=== PATIENT | male | born 1980 | race Caucasian/White ===

== ENCOUNTER → 2023-11-26 | Outpatient (CLI) | payer OTHER ==
[2023-11-26 17:11] LABS: ALT 16 U/L (10-49); AST 15 U/L (14-35); Albumin 4.2 g/dL (3.8-4.9); Albumin/Globulin Ratio 1.68 Ratio (1.60-3.17); Alkaline Phosphatase 106 U/L (41-126); BUN/Creat Ratio 12.33 Ratio (12.00-20.00); Blood Urea Nitrogen 11.1 mg/dL (9.0-27.0); Calcium 9.8 mg/dL (8.7-10.3); Carbon Dioxide 25.3 mmol/L (21.6-31.8); Chloride 105 mmol/L (96-109); Globulin 2.5 g/dL (1.6-3.3); Glucose 141 mg/dL (70-110); Potassium 4.3 mmol/L (3.5-5.5); Sodium 141 mmol/L (135-145); Total Bilirubin 0.6 mg/dL (0.3-1.2); Total Protein 6.7 g/dL (6.2-8.2)
[2023-11-26 17:38] LABS: Basophils # (A) 0.04 X 10*3/uL (0.00-0.10); Basophils % (A) 0.4 %; Eosinophils % (A) 6.3 %; HCT 47.2 % (39.6-50.0); HGB 15.6 g/dL (13.0-17.0); Lymphocytes # (A) 2.16 X 10*3/uL (0.90-5.00); Lymphocytes % (A) 22.6 %; MCH 33.1 pg (27.0-32.0); MCHC 33.1 g/dL (32.0-37.0); MCV 100.2 FL (80.0-97.0); Mean Platelet Volume 9.4 FL (9.5-12.2); Monocytes # (A) 0.92 X 10*3/uL (0.20-1.00); Monocytes % (A) 9.6 %; NRBC Per 100 WBC 0 X 10*3/uL (0.00-0.01); Neutrophils # (A) 5.79 X 10*3/uL (1.80-7.70); Neutrophils % (A) 60.8 %; Platelet Count 269 X 10*3/uL (140-440); RBC 4.71 X 10*6/uL (4.40-5.60); RDW 12.3 % (11.5-14.5); WBC 9.54 X 10*3/uL (4.50-10.00)
[2023-11-27 09:52] LABS: Appearance,Urine Cloudy (Clear); Bacteria,Urine None Seen (None Seen); Bilirubin,Urine Negative (Negative); Blood,Urine Large (Negative); Color,Urine Yellow (Yellow); Ketones,Urine Negative (Negative); Nitrite,Urine Negative (Negative); Specific Gravity,Urine 1.013 (1.001-1.030); Urobilinogen,Urine 0.2 E.U./DL
== END | disposition home or self-care (01) ==
LOC: LABPAT 08:35
PROVIDERS: ATTEND Urology
DX: Z01.812 Encounter for preprocedural laboratory examination (principal); N20.0 Calculus of kidney
CPT/HCPCS: 80053; 81001; 85025; 86850; 86900; 86901; 93005

== ENCOUNTER 2023-11-29 09:19 | Day surgery (SDC) | payer OTHER ==
--- NOTE | 2023-11-28 18:27 | P.GSHP ---
History of Present Illness H&P Date: 11/28/23 43 yo male sent by Dr Lane from [place] for a pcnl RIght to a large[>2cm] right renal pelvic stone that he was unable to break with ureteroscopy and laser lithotripsy. The alternatives were discussed with the patient. The risks, complications of a pcnl including infection, bleeding, pain. injury to adjacent organs, incomplete stone removal, failure to intubate the idney among others have been explained understood and accepted by the patient. He comes for a right pcnl - Constitutional Constitutional: Denies chills, Denies fever - EENT Eyes: denies blurred vision, denies pain Ears, nose, mouth and throat: Denies headache, Denies sore throat - Cardiovascular Cardiovascular: Denies chest pain, Denies shortness of breath - Respiratory Respiratory: Denies cough, Denies 7 - Gastrointestinal Gastrointestinal: Denies abdominal pain, Denies diarrhea, Denies nausea, Denies vomiting - Genitourinary (Female) Genitourinary: Denies dysuria, Denies hematuria - Genitourinary (Male) Genitourinary: Denies dysuria, Denies hematuria - Musculoskeletal Musculoskeletal: Denies myalgias - Integumentary Integumentary: Denies pruritus, Denies rash - Neurological Neurological: Denies numbness, Denies weakness - Psychiatric Psychiatric: Denies anxiety, Denies depression - Endocrine Endocrine: Denies fatigue, Denies weight change Past Medical History Past Medical History: Asthma, Diabetes Mellitus, GERD/Reflux, Hyperlipidemia, Hypertension, Liver Disease, Osteoarthritis (OA) Additional Past Medical History / Comment(s): Heart racing/procedure to stop racing-done at [facility] in [place] about 5-6 yrs ago, RT KIDNEY STONE, allergies, past fatty liver. History of Any Multi-Drug Resistant Organisms: None Reported Past Surgical History: Cholecystectomy Additional Past Surgical History / Comment(s): Percutaneous heart procedure where "they took a tube out of my heart because I was pumping too much blood", EGD 09/10 Past Anesthesia/Blood Transfusion Reactions: No Reported Reaction Additional Past Anesthesia/Blood Transfusion Reaction / Comment(s): HAS NEVER HAD ANESTHESIA. Smoking Status: Current every day smoker, Vaper - Past Family History Mother History Unknown: Yes Family Medical History: No Reported History Medications and Allergies Home Medications Medication Instructions Recorded Confirmed Type Acetaminophen Tab [Tylenol] 1 tab PO Q4-6H PRN 08/06/15 11/23/23 History Albuterol Inhaler [Ventolin 1 puff INHALATION DAILY PRN 08/06/15 11/23/23 History Inhaler] Dicyclomine [Bentyl] 10 mg PO BID 08/06/15 11/23/23 History Mometasone/Formoterol [Dulera 100 1 puff INHALATION BID 08/06/15 11/23/23 History Mcg/5 Mcg Inhaler] Montelukast [Singulair] 10 mg PO HS 08/06/15 11/23/23 History Atorvastatin [Lipitor] 10 mg PO QAM 11/23/23 11/23/23 History Famotidine 20 mg PO BID 11/23/23 11/23/23 History Ibuprofen [Advil] 200 mg PO Q12H PRN 11/23/23 11/23/23 History Pioglitazone [Actos] 15 mg PO QAM 11/23/23 11/23/23 History Tirzepatide [Mounjaro] 5 mg SQ TU 11/23/23 11/23/23 History lisinopriL [Zestril] 20 mg PO QAM 11/23/23 11/23/23 History metFORMIN HCL 1,000 mg PO QAM 11/23/23 11/23/23 History Allergies Allergy/AdvReac Type Severity Reaction Status Date / Time dog dander Allergy Rash/Hives Verified 11/23/23 12:21 Latex, Natural Rubber Allergy Rash/Hives Verified 11/23/23 11:53 hay, straw, grass Allergy Rash/Hives Uncoded 11/23/23 12:21 Surgical - Exam - General well developed, well nourished, no distress - Eyes normal ocular movement, no icteric - ENT no hearing loss, no congestion - Neck no masses, trachea midline - Respiratory normal respiratory effort, clear to auscultation - Abdomen Abdomen: soft, non tender, no guarding, no rigid, no rebound - Integumentary no rash, no abnormal pigmentation - Neurologic no disoriented, no combative - Psychiatric oriented to time, oriented to person, oriented to place, speech is normal, memory intact Results - Imaging Abdominal x-ray: report reviewed, image reviewed CT scan - abdomen: report reviewed CT scan - pelvis: report reviewed Assessment and Plan Assessment: Impression: Right renal stone, large. Cardiac history Plan: right pcnl
[~2023-11-29 09:19] MED LIST: LIDOCAINE 1% (10MG/ML) FOR IV START INTRADERMA PRN; MIDAZOLAM 2 MG/2 ML VIAL IV PRN
[2023-11-29 10:19] LABS: Glucose,Whole Blood 131 mg/dL (70-110)
[2023-11-29] MEDS: ONDANSETRON 4 MG/2 ML VIAL IVP ONE (10:22)
[2023-11-29] MEDS: DEXAMETHASONE SOD PHOSPHATE 4 MG/ML 1 ML VIAL IV ONE (10:22)
[2023-11-29] MEDS: LACTATED RINGERS 1,000 ML IV SCH (10:22)
--- NOTE | 2023-11-29 11:19 | XR ---
EXAMINATION TYPE: XR KUB DATE OF EXAM: 11/29/2023 9:38 AM CLINICAL INDICATION:Male, 43 years old with history of Right Renal Stone N20.0; [facility] COMPARISON: None. TECHNIQUE: One radiographic view of the abdomen was obtained. FINDINGS: Right ureteral stent with superior and inferior pigtails in appropriate position. Right abhilash al calculus measuring up to 25 mm. Left renal calculus also present measuring 7 mm. The bowel gas pat tern is nonspecific without dilated loops of small or large bowel. There is no evidence for organomeg robert or pneumoperitoneum. The osseous structures are intact. Fecal material and gas are demonstrated throughout the colon and rectum. IMPRESSION: Right renal calculus with right ureteral stent in place.
[2023-11-29] MEDS ORDERED: LIDOCAINE 1% INJ 10MG/ML (20 ML MDV) ONE (13:56)
[2023-11-29] MEDS ORDERED: fentaNYL (PF) 50 MCG/ML 2 ML AMP ONE (13:56)
[2023-11-29] MEDS ORDERED: ROCURONIUM 10 MG/ML (5 ML VIAL) IV ONE (13:56)
[2023-11-29] MEDS ORDERED: ePHEDrine 50 MG/ML 1 ML VIAL ONE (13:56)
[2023-11-29] MEDS ORDERED: PHENYLEPHRINE-0.9% NACL SYG 1,000 MCG/10 ML SYRINGE ONE (13:56)
[2023-11-29] MEDS ORDERED: SUCCINYLCHOLINE CHLORIDE 200 MG/10 ML VIAL IV ONE (13:56)
[2023-11-29] MEDS ORDERED: GLYCOPYRROLATE 0.2 MG/ML 2 ML VIAL ONE (13:56)
[2023-11-29] MEDS ORDERED: HYDROmorphone (PF) 1 MG/ML ONE (13:56)
[2023-11-29] MEDS ORDERED: MIDAZOLAM 2 MG/2 ML VIAL ONE (13:56)
[2023-11-29] MEDS ORDERED: NEOSTIGMINE 1 MG/ML 10 ML VIAL ONE (13:56)
[2023-11-29] MEDS ORDERED: PROPOFOL 10 MG/ML 20 ML VIAL IV ONE (13:56)
[2023-11-29] MEDS: LACTATED RINGERS 1,000 ML IV ONE (14:00)
[2023-11-29] MEDS: IOPAMIDOL-370 100ML BTL MISCELLANE ONE (14:10)
[2023-11-29] MEDS: GENTAMICIN 120 MG in SODIUM CHLORIDE 0.9% 100 ML IVPB PRN (14:22)
[2023-11-29] MEDS: AMPICILLIN 1,000 MG in SODIUM CHLORIDE 0.9% 50 ML IVPB PRN (14:34)
[2023-11-29] MEDS ORDERED: ALBUTEROL NEBULIZED 2.5 MG/3 ML INHALATION PRN (16:26)
[2023-11-29] MEDS ORDERED: ACETAMINOPHEN TAB 325 MG TAB PO PRN ×2 (16:26→16:28)
[2023-11-29] MEDS ORDERED: NALOXONE 0.4 MG/ML 1 ML VIAL IV PRN (16:27)
[2023-11-29] MEDS ORDERED: MAG HYDROX/AL HYDROX/SIMETH 30 ML CUP PO PRN (16:28)
[2023-11-29] MEDS ORDERED: ONDANSETRON 4 MG/2 ML VIAL IVP PRN (16:28)
[2023-11-29] MEDS: HYDROmorphone 0.5 MG/0.5 ML SYRINGE IVP PRN (17:13)
[2023-11-29 17:31] LABS: Glucose,Whole Blood 247 mg/dL (70-110)
[2023-11-29] MEDS: INSULIN ASPART (NovoLOG) 100 UNIT/ML VIAL SQ ONE (17:34)
--- NOTE | 2023-11-29 17:44 | FL ---
EXAMINATION TYPE: FL Perc Nephrostomy New Access Intraoperative/procedural fluoroscopic services were provided. Total fluoroscopy time is 6 min 21 sec with a total of 6 submitted images to PACS. Please see the operative/procedural note for further details. DAP: 124.7 Gycm2
[2023-11-29] MEDS: SODIUM CHLORIDE 0.45% 1,000 ML IV SCH (18:35)
[2023-11-29 20:46] LABS: Glucose,Whole Blood 204 mg/dL (70-110)
[2023-11-29] MEDS: SYMBICORT 80-4.5 MCG INHALER INHALATION SCH (21:18)
[2023-11-29] MEDS: HYDROmorphone PCA 10 MG/50 ML BAG IV PRN (21:33)
[2023-11-29] MEDS: FAMOTIDINE 20 MG TAB PO SCH (22:07)
[2023-11-29] MEDS: MONTELUKAST 10 MG TAB PO SCH (22:07)
[2023-11-29] MEDS: DICYCLOMINE 10 MG CAP PO SCH (22:07)
--- NOTE | 2023-11-29 22:12 | OP ---
OPERATIVE REPORT DATE OF SERVICE : PREOPERATIVE DIAGNOSIS: Kidney stone, right (large greater than 2 cm). POSTOPERATIVE DIAGNOSIS: Kidney stone, right (large greater than 2 cm). PROCEDURES: 1. Cystoscopy. 2. Placement of occluding balloon catheter, right. 3. Percutaneous nephrostomy access (Dr. Mandujano). 4. Percutaneous nephrostolithotomy with ultrasound. 5. Placement of 12-[place] J nephrostomy tube. ANESTHESIA: General. OPERATIVE INDICATIONS: The patient is a middle-aged gentleman with a 2.5 cm right renal pelvic stone, sent to me from a urologist in [place], [place] because of his inability to remove the stone ureteroscopically. He comes for percutaneous nephrostolithotomy. Risks, complications including infection, bleeding, pain, failure to access, damage to the kidney, damage to the surrounding organs, retained stone, among others have been explained, understood and accepted. OPERATIVE PROCEDURE: The patient was brought to the operating suite. He was given a general anesthetic on the transport gurney. Rolls were placed underneath his hips. He was placed in a frog- leg position. Under sterile prep and drape, cystoscopy was performed with a 21-[place]ore[place] sheath. Urethra was normal. The prostate was not obstructing. The double-J catheter on the right was identified. With difficulty, it was grasped and pulled out of the ureter. I then reintroduced the cystoscope and passed a 5-[place] occluding balloon catheter up into the renal pelvis. It was secured to a 16-[place] latex-free Rosales catheter. The patient was then placed in a prone position with care to areas in extremities. Percutaneous access to an upper pole calyx has been performed by myself and will be dictated separately. After percutaneous access, dilated the tract to 30-[place]orese. I introduced the rigid nephroscope into the collecting system. Clot was removed. The large stone was identified. With nephroscope, the stone was broken up into tiny pieces and suctioned out or grasped and removed with grasping forceps. I then introduced a flexible nephroscope throughout the collecting system and removed any other smaller fragments that either came from grinding the stone or that were there previously. At the end of the procedure, there was 1 tiny calcification I can identify that may be a tubular stone. I then elected to terminate the procedure. The working sheath was removed. Over the wire was passed a 12-[place] J nephrostomy tube that was secured to the skin. Access in the lower pole which failed was closed also with 3-0 silk. The patient was awakened and returned to recovery room in good condition. Blood loss was approximately 200 mL. He will be placed in the hospital postoperatively. His condition was good. PRASHANT / KHUSHBOO: [id number] /
--- NOTE | 2023-11-29 22:32 | PCN ---
PROCEDURE NOTE DIAGNOSIS: Large kidney stone, right (greater than 2 cm). PROCEDURE: Percutaneous nephrostomy access. ANESTHESIA: General. Fabio Oreilly is_43 yo male with a large right renal stone[>2cm]. He comes for percutaneous nephrostolithotomy today. I will perform percutaneous access for the percutaneous nephrostolithotomy. The patient has previously been anesthetized. A ureteral occlusion balloon catheter was placed up in the ureter. The patient has been placed in a prone position with sterile prep and draping with care to areas in extremities. I injected air through the occluding balloon catheter to outline the collecting system. The lower pole calyx looks amenable to past the nephrostomy tube. Several attempts and I finally got the Chiba needle, 3-Namibian into the collecting system. Through that, the Anna Mandril wire was passed into the collecting system. I am unable to get it to go by the impacted stone. I attempted to coil the wires in the middle pole calyx. Over that, I then passed an 8 to 10-Namibian reentry sheath. The inner sheath was removed. I passed the 2nd wire into the middle pole calyx. Then, over the wire, I dilated the collecting system and attempted to pass a working sheath into the collecting system, but I am unable to do so. I leave the working sheath there for now. I re-approached the upper pole calyx. Between the 11th and 12th rib, I am able to pass the Chiba needle into the collecting system. This time, I am able to pass the Anna Mandril wire through the Chiba needle into the upper pole calyx. I then passed the 6- [place]ib[place] dilating catheter over the wire. I introduced an 0.035 Glidewire. I then passed the 5-Namibian Kumpe catheter over the wire and directed the wire down the ureter. I then advanced the wire down the ureter. I removed the 0.035 wire and passed an 0.038 superstiff wire down the ureter. I then passed 8 to 10 exchange catheters. I removed the entire catheter and passed a safety wire down the ureter. I removed the working sheath. I then over the working wire, passed a 10 to 30-Namibian dilating balloon and the tract was dilated to 30-Namibian. Over the 30-Namibian balloon, I then passed a working sheath into the collecting system successfully. MMODL / IJN: [id number] / [facility]
[2023-11-29] MEDS: ARTIFICIAL TEARS-HYPROMELLOSE DROPS 15 ML BTL RIGHT EYE PRN (22:41)
[2023-11-30 02:20] VITALS: RESP 18
[2023-11-30 06:07] LABS: Glucose,Whole Blood 139 mg/dL (70-110)
[2023-11-30 07:55] VITALS: BP 106/66; PULSE 84; TEMP 98
[2023-11-30] MEDS: metFORMIN 500 MG TAB PO SCH (08:24)
[2023-11-30] MEDS: lisinopriL 20 MG TAB PO SCH (08:24)
[2023-11-30] MEDS: PIOGLITAZONE 15 MG TAB PO SCH (08:24)
[2023-11-30] MEDS: ATORVASTATIN 10 MG TAB PO SCH (08:25)
--- NOTE | 2023-11-30 08:55 | P.DS ---
Providers Attending physician: Ashish Mandujano Primary care physician: Cash Miriam Hospital Course: This is a 43-year-old male with a history of right-sided renal stone, underwent right-sided percutaneous nephrolithotomy by Dr. Mandujano on November 28. Please see op note dated November 28 for surgery details. Patient was admitted to the hospital postoperatively. Rosales catheter was removed on postop day #1. He was discharged home on postop day #1 at time of discharge he was tolerating a diet, ambulating, pain is controlled, he was discharged home with a nephrostomy tube Plan - Discharge Summary Discharge Rx Participant: No New Discharge Prescriptions: New HYDROcodone/APAP 5-325MG [[place] 5-325] 1 tab PO Q6HR PRN 3 Days #12 tab PRN Reason: Pain Ketorolac [Toradol] 10 mg PO Q6HR #15 tab No Action Montelukast [Singulair] 10 mg PO HS Mometasone/Formoterol [Dulera 100 Mcg/5 Mcg Inhaler] 1 puff INHALATION BID Dicyclomine [Bentyl] 10 mg PO BID Albuterol Inhaler [Ventolin Inhaler] 1 puff INHALATION DAILY PRN PRN Reason: Shortness Of Breath Or Wheezing Acetaminophen Tab [Tylenol] 1 tab PO Q4-6H PRN PRN Reason: Pain Atorvastatin [Lipitor] 10 mg PO QAM metFORMIN HCL 1,000 mg PO QAM Tirzepatide [Mounjaro] 5 mg SQ TU lisinopriL [Zestril] 20 mg PO QAM Pioglitazone [Actos] 15 mg PO QAM Ibuprofen [Advil] 200 mg PO Q12H PRN PRN Reason: Pain Famotidine 20 mg PO BID Discharge Medication List Acetaminophen Tab [Tylenol] 1 tab PO Q4-6H PRN 08/06/15 [History] Albuterol Inhaler [Ventolin Inhaler] 1 puff INHALATION DAILY PRN 08/06/15 [History] Dicyclomine [Bentyl] 10 mg PO BID 08/06/15 [History] Mometasone/Formoterol [Dulera 100 Mcg/5 Mcg Inhaler] 1 puff INHALATION BID 08/06/15 [History] Montelukast [Singulair] 10 mg PO HS 08/06/15 [History] Atorvastatin [Lipitor] 10 mg PO QAM 11/23/23 [History] Famotidine 20 mg PO BID 11/23/23 [History] Ibuprofen [Advil] 200 mg PO Q12H PRN 11/23/23 [History] Pioglitazone [Actos] 15 mg PO QAM 11/23/23 [History] Tirzepatide [Mounjaro] 5 mg SQ TU 11/23/23 [History] lisinopriL [Zestril] 20 mg PO QAM 11/23/23 [History] metFORMIN HCL 1,000 mg PO QAM 11/23/23 [History] HYDROcodone/APAP 5-325MG [[place] 5-325] 1 tab PO Q6HR PRN 3 Days #12 tab 11/30/23 [Rx] Ketorolac [Toradol] 10 mg PO Q6HR #15 tab 11/30/23 [Rx]
[2023-11-30 11:28] LABS: Glucose,Whole Blood 148 mg/dL (70-110)
[2023-12-04] MEDS ORDERED: NON FORMULARY DRUG (Tirzepatide [Mounjaro] 5 MG/0.5 ML Pen.Injctr) SQ SCH (18:53)
== END 2023-11-30 13:42 | disposition home or self-care (01) ==
LOC: OR 09:19 → 4SSUR 16:13 → OR 11-30 13:42
PROVIDERS: ATTEND Urology
DX: N20.0 Calculus of kidney (principal); E11.9 Type 2 diabetes mellitus without complications; E78.5 Hyperlipidemia, unspecified; I10 Essential (primary) hypertension; J45.909 Unspecified asthma, uncomplicated; K21.9 Gastro-esophageal reflux disease without esophagitis; K76.0 Fatty (change of) liver, not elsewhere classified; M19.90 Unspecified osteoarthritis, unspecified site; F17.200 Nicotine dependence, unspecified, uncomplicated; Z79.51 Long term (current) use of inhaled steroids; Z79.84 Long term (current) use of oral hypoglycemic drugs; Z90.49 Acquired absence of other specified parts of digestive tract; Z91.040 Latex allergy status; Z79.899 Other long term (current) drug therapy
CPT/HCPCS: 50081; 94640 ×2; 82365; 50432; 74018; C2628; C1769 ×3; C1894; C1729; J2250; J0330; J1100; J2710; J2405; J2001; J3010; J1580; J0290; J1170 ×3; J2704; Q9967; J2371

== ENCOUNTER 2023-12-06 11:44 | Inpatient (IN) | payer OTHER ==
--- NOTE | 2023-12-06 12:32 | ED ---
General Adult HPI - General Chief complaint: Abdominal Pain Stated complaint: Abd Pain Time Seen by Provider: 12/06/23 11:46 Source: patient, RN/MD (Transferring physician), EMS, RN notes reviewed, old records reviewed (Records from [facility]) Mode of arrival: EMS Limitations: no limitations - History of Present Illness Initial comments: Patient is a 43-year-old male transferred from [facility] secondary to kidney stone. Patient does have history of large kidney stone with urostomy tube placed. Urostomy tube was removed yesterday. Patient has had increased discomfort since last night. No fever. No vomiting. Patient did go to the hospital there and received several doses of medication and states discomfort is moderate at this time. They were concerned regarding white blood cell count and increased creatinine. CT scan was done. - Related Data Home Medications Medication Instructions Recorded Confirmed Acetaminophen Tab [Tylenol] 325 mg PO Q4-6H PRN 08/06/15 12/06/23 Albuterol Inhaler [Ventolin 2 puff INHALATION RT-Q6H PRN 08/06/15 12/06/23 Inhaler] Atorvastatin [Lipitor] 10 mg PO DAILY 11/23/23 12/06/23 Famotidine 20 mg PO BID 11/23/23 12/06/23 Ibuprofen [Advil] 200 mg PO Q12H PRN 11/23/23 12/06/23 Pioglitazone [Actos] 15 mg PO DAILY 11/23/23 12/06/23 Tirzepatide [Mounjaro] 5 mg SQ TU 11/23/23 12/06/23 metFORMIN HCL 1,000 mg PO BID 11/23/23 12/06/23 Amoxicillin 500 mg PO QID 12/06/23 12/06/23 Budesonide/Formoterol Fumarate 2 puff INHALATION RT-BID 12/06/23 12/06/23 [Symbicort 80-4.5 Mcg Inhaler] Chlorhexidine Gluconate [Peridex] 15 ml PO BID 12/06/23 12/06/23 lisinopriL [Zestril] 40 mg PO DAILY 12/06/23 12/06/23 Allergies Allergy/AdvReac Type Severity Reaction Status Date / Time dog dander Allergy Rash/Hives Verified 12/06/23 12:45 Latex, Natural Rubber Allergy Rash/Hives Verified 12/06/23 12:45 hay, straw, grass Allergy Rash/Hives Uncoded 11/29/23 09:59 Review of Systems ROS Statement: Those systems with pertinent positive or pertinent negative responses have been documented in the HPI. ROS Other: All systems not noted in ROS Statement are negative. Constitutional: Denies: fever Eyes: Denies: eye pain ENT: Denies: ear pain Respiratory: Denies: cough Cardiovascular: Denies: chest pain Gastrointestinal: Reports: as per HPI, abdominal pain (Right flank) Past Medical History Past Medical History: Asthma, Diabetes Mellitus, GERD/Reflux, Hyperlipidemia, Hypertension, Liver Disease, Osteoarthritis (OA) Additional Past Medical History / Comment(s): Heart racing/procedure to stop racing-done at [facility] in [place] about 5-6 yrs ago, RT KIDNEY STONE, allergies, past fatty liver. History of Any Multi-Drug Resistant Organisms: None Reported Past Surgical History: Cholecystectomy Additional Past Surgical History / Comment(s): Percutaneous heart procedure where "they took a tube out of my heart because I was pumping too much blood", EGD 09/10 Past Anesthesia/Blood Transfusion Reactions: No Reported Reaction Additional Past Anesthesia/Blood Transfusion Reaction / Comment(s): HAS NEVER HAD ANESTHESIA. Past Psychological History: No Psychological Hx Reported Smoking Status: Current every day smoker, Vaper Past Alcohol Use History: None Reported Past Drug Use History: None Reported - Past Family History Mother History Unknown: Yes Family Medical History: No Reported History General Exam Limitations: no limitations General appearance: alert, in no apparent distress Head exam: Present: normocephalic Eye exam: Present: normal appearance Neck exam: Present: normal inspection Respiratory exam: Present: normal lung sounds bilaterally Cardiovascular Exam: Present: regular rate, normal rhythm GI/Abdominal exam: Present: soft. Absent: tenderness Extremities exam: Present: normal inspection Back exam: Absent: tenderness, CVA tenderness (R) Neurological exam: Present: alert Psychiatric exam: Present: normal affect, normal mood Skin exam: Present: other (Right CVA incision clean and dry) Course Vital Signs 12/06/23 11:47 Temperature 98.3 F Pulse Rate 78 Respiratory 22 Rate Blood Pressure 148/85 O2 Sat by Pulse 96 Oximetry Medical Decision Making - Medical Decision Making Was pt. sent in by a medical professional or institution (, PA, GRAD INTERN, urgent care, hospital, or snf...) When possible be specific @ -Patient was sent from [place] Did you speak to anyone other than the patient for history (EMS, parent, family, police, friend...)? What history was obtained from this source @ -Transferring physician Did you review nursing and triage notes (agree or disagree)? Why? @ -I reviewed and agree with nursing and triage notes Were old charts reviewed (outside hosp., previous admission, EMS record, old EKG, old radiological studies, urgent care reports/EKG's, snf records)? Report findings @ -Chart reviewed from [facility]. Patient did receive Rocephin prior to transport. Labs reviewed also Differential Diagnosis (chest pain, altered mental status, abdominal pain women, abdominal pain men, vaginal bleeding, weakness, fever, dyspnea, syncope, headache, dizziness, GI bleed, back pain, seizure, CVA, palpatations, mental health, musculoskeletal)? @ -Differential Abdominal Pain Men: Appendicitis, cholecystitis, diverticulosis, ischemic bowel, pancreatitis, hepatitis, UTI, gastroenteritis, AAA, incarcerated hernia, bowel obstruction, constipation, inflammatory bowel, hepatitis, peptic ulcer disease, splenic infarction, perforated viscus, testicular torsion, this is not meant to be an all-inclusive list EKG interpreted by me (3pts min.). @ -As above X-rays interpreted by me (1pt min.). @ -None done CT interpreted by me (1pt min.). @ -CT scan with distal ureteral stones U/S interpreted by me (1pt. min.). @ -None done What testing was considered but not performed or refused? (CT, X-rays, U/S, labs)? Why? @ -None What meds were considered but not given or refused? Why? @ -None Did you discuss the management of the patient with other professionals (professionals i.e. , PA, GRAD INTERN, lab, RT, psych nurse, social welfare administrator, generator repairer, teacher, founder chairman and chief creative officer, family service caseworker)? Give summary @ -Case discussed with transferring physician. Case also discussed with Dr. Mohan who will admit. Was smoking cessation discussed for >3mins.? @ -No Was critical care preformed (if so, how long)? @ -No Were there social determinants of health that impacted care today? How? (Homelessness, low income, unemployed, alcoholism, drug addiction, transportation, low edu. Level, literacy, decrease access to med. care, shelter, rehab)? @ -No Was there de-escalation of care discussed even if they declined (Discuss DNR or withdrawal of care, Hospice)? DNR status @ -No What co-morbidities impacted this encounter? (DM, HTN, Smoking, COPD, CAD, Cancer, CVA, ARF, Chemo, Hep., AIDS, mental health diagnosis, sleep apnea, morbid obesity)? @ -None Was patient admitted / discharged? Hospital course, mention meds given and route, prescriptions, significant lab abnormalities, going to OR and other pertinent info. @ -Patient transferred for urology care. Patient admitted. Rocephin will be continued. Admission orders written. Undiagnosed new problem with uncertain prognosis? @ -No Drug Therapy requiring intensive monitoring for toxicity (Heparin, Nitro, Insulin, Cardizem)? @ -No Were any procedures done? @ -No Diagnosis/symptom? @ -Ureterolithiasis Acute, or Chronic, or Acute on Chronic? @ -Acute Uncomplicated (without systemic symptoms) or Complicated (systemic symptoms)? @ -Default Side effects of treatment? @ -No Exacerbation, Progression, or Severe Exacerbation? @ -No Poses a threat to life or bodily function? How? (Chest pain, [place], PR, pneumonia, PE, COPD, DKA, ARF, appy, cholecystitis, CVA, Diverticulitis, Homicidal, Suicidal, threat to staff... and all critical care pts) @ -No Disposition Clinical Impression: Ureterolithiasis Disposition: ADMITTED IP TO THIS HOSP Is patient prescribed a controlled substance at d/c from ED?: No Referrals: None,Stated [Primary Care Provider] - 1-2 days Time of Disposition: 14:35
[2023-12-06] MEDS ORDERED: NALOXONE 0.4 MG/ML 1 ML VIAL IV PRN (14:35)
[2023-12-06] MEDS ORDERED: HYDROmorphone 0.5 MG/0.5 ML SYRINGE IVP PRN (14:35)
[2023-12-06] MEDS ORDERED: HYDROmorphone 1 MG/ML 1 ML SYRINGE IVP PRN (14:35)
--- NOTE | 2023-12-06 15:34 | P.GSHP ---
History of Present Illness H&P Date: 12/06/23 Chief Complaint: Right renal colic The patient is a 43-year-old white male who underwent an uncomplicated right percutaneous nephrolithotomy for a large right renal pelvic calculus on November 29, [address] Mandujano removed his nephrostomy tube in the office yesterday. Last night, he began to experience right flank and abdominal pain, which increased throughout the night. He was evaluated at [facility] and found to have several right distal ureteral calculi. He was transferred to [facility] for further evaluation and treatment. - Constitutional Constitutional: Denies chills, Denies fever - Gastrointestinal Gastrointestinal: Denies nausea, Denies vomiting - Genitourinary (Male) Genitourinary: Reports flank pain, Reports kidney stones, Denies dysuria, Denies hematuria Past Medical History Past Medical History: Asthma, Diabetes Mellitus, GERD/Reflux, Hyperlipidemia, Hypertension, Liver Disease, Osteoarthritis (OA) Additional Past Medical History / Comment(s): Heart racing/procedure to stop racing-done at [facility] in [place] about 5-6 yrs ago, RT KIDNEY STONE, allergies, past fatty liver. History of Any Multi-Drug Resistant Organisms: None Reported Past Surgical History: Cholecystectomy Additional Past Surgical History / Comment(s): Percutaneous heart procedure where "they took a tube out of my heart because I was pumping too much blood", EGD 09/10 Past Anesthesia/Blood Transfusion Reactions: No Reported Reaction Additional Past Anesthesia/Blood Transfusion Reaction / Comment(s): HAS NEVER HAD ANESTHESIA. Past Psychological History: No Psychological Hx Reported Smoking Status: Current every day smoker, Vaper Past Alcohol Use History: None Reported Past Drug Use History: None Reported - Past Family History Mother History Unknown: Yes Family Medical History: No Reported History Medications and Allergies Home Medications Medication Instructions Recorded Confirmed Type Acetaminophen Tab [Tylenol] 325 mg PO Q4-6H PRN 08/06/15 12/06/23 History Albuterol Inhaler [Ventolin 2 puff INHALATION RT-Q6H PRN 08/06/15 12/06/23 History Inhaler] Atorvastatin [Lipitor] 10 mg PO DAILY 11/23/23 12/06/23 History Famotidine 20 mg PO BID 11/23/23 12/06/23 History Ibuprofen [Advil] 200 mg PO Q12H PRN 11/23/23 12/06/23 History Pioglitazone [Actos] 15 mg PO DAILY 11/23/23 12/06/23 History Tirzepatide [Mounjaro] 5 mg SQ TU 11/23/23 12/06/23 History metFORMIN HCL 1,000 mg PO BID 11/23/23 12/06/23 History Amoxicillin 500 mg PO QID 12/06/23 12/06/23 History Budesonide/Formoterol Fumarate 2 puff INHALATION RT-BID 12/06/23 12/06/23 History [Symbicort 80-4.5 Mcg Inhaler] Chlorhexidine Gluconate [Peridex] 15 ml PO BID 12/06/23 12/06/23 History lisinopriL [Zestril] 40 mg PO DAILY 12/06/23 12/06/23 History Allergies Allergy/AdvReac Type Severity Reaction Status Date / Time dog dander Allergy Rash/Hives Verified 12/06/23 12:45 Latex, Natural Rubber Allergy Rash/Hives Verified 12/06/23 12:45 hay, straw, grass Allergy Rash/Hives Uncoded 11/29/23 09:59 Surgical - Exam Vital Signs Temp Pulse Resp BP Pulse Ox 98.3 F 78 22 148/85 96 12/06/23 11:47 12/06/23 11:47 12/06/23 11:47 12/06/23 11:47 12/06/23 11:47 - General well developed, well nourished, severe distress - Respiratory normal respiratory effort - Abdomen Abdomen: soft, tender (Right-sided tenderness), no masses, no guarding, no rigid, no rebound - Psychiatric oriented to time, oriented to person, oriented to place, speech is normal, memory intact Results - Imaging CT scan - abdomen: report reviewed, image reviewed Assessment and Plan (1) Ureterolithiasis Current Visit: Yes Status: Acute Code(s): N20.1 - CALCULUS OF URETER SNOMED Code(s): 49718543 Plan: The patient has experienced pain since his nephrostomy tube was removed, likely due to several right distal ureteral calculi measuring several millimeters in diameter. He will be admitted for IV hydration and parenteral analgesics. He will undergo ureteroscopic removal of the right distal ureteral calculi along with insertion of a right ureteral stent. The rationale for this has been reviewed in detail with the patient and his family. They have been made aware of potential risks, which include anesthesia, bleeding, infection, and ureteral injury.
[2023-12-06] MEDS: LACTATED RINGERS 1,000 ML IV ONE ×2 (16:06→19:12)
[2023-12-06] MEDS ORDERED: ONDANSETRON 4 MG/2 ML VIAL ONE (16:21)
[2023-12-06 16:28] LABS: Glucose,Whole Blood 186 mg/dL (70-110)
[2023-12-06] MEDS: fentaNYL (PF) 50 MCG/ML 2 ML AMP IVP ONE (16:28)
[2023-12-06] MEDS: ONDANSETRON 4 MG/2 ML VIAL IVP ONE (16:28)
[2023-12-06] MEDS: SODIUM CHLORIDE 0.9% 50 ML with ceFAZolin 2,000 MG IV ONE (18:30)
--- NOTE | 2023-12-06 19:38 | P.OP ---
Date of Procedure: 12/06/23 Preoperative Diagnosis: Right ureteral calculi Postoperative Diagnosis: Same Procedure(s) Performed: Cystoscopy, right ureteroscopy with Holmium laser lithotripsy and stone basketing, right ureteral stent insertion Anesthesia: KEITH Surgeon: Rosalio Knox Estimated Blood Loss (ml): 10 IV fluids (ml): 800 Pathology: none sent Condition: stable Disposition: PACU Indications for Procedure: The patient is a 43-year-old white male who underwent an uncomplicated right percutaneous nephrolithotomy for a large right renal pelvic calculus on November 29, [address] Mandujano removed his nephrostomy tube in the office yesterday. Last night, he began to experience right flank and abdominal pain, which increased throughout the night. He was evaluated at [facility] and found to have several right distal ureteral calculi. He was tr ansferred to [facility] for further evaluation and treatment. The patient was experiencing considerable pain in the ER and chose to undergo ureteroscopic removal of the ureteral calculi. Operative Findings: Several ureteral calculi are seen measuring up to 6 mm in size. Description of Procedure: The patient was taken to the operating room and placed in the dorsolithotomy position, with legs supported in Nick stirrups. The external genitalia was prepped and draped sterilely. The 30 lens was used to introduce the 21-Singaporean Hardy cystoscopic sheath through the urethra and into the bladder under direct vision. The prostatic urethra showed evidence of mild lateral lobe enlargement. The bladder was examined in its entirety. Both ureteral orifices were normal anatomic location and configuration. The right ureteral orifice was somewhat edematous. No tumors or foreign bodies were seen. The Hardy semirigid ureteroscope was advanced into the bladder, and the right ureteral orifice was cannulated. The ureteroscope was slowly advanced under direct vision. Multiple small calculi were seen. These were fragmented using the 200 m holmium laser probe. Calculus fragments were removed using a 1.9 Singaporean 0 tip nitinol basket. Once the distal ureteral calculi were removed, the ureteroscope was advanced and a larger calculus, measuring 5 to 6 mm in size, was seen within the mid ureter. Lithotripsy was performed. The calculus was broken into half, but both halves migrated proximally into the renal pelvis. The ureteroscope was removed, and a 0.035 inch Glidewire was passed through the ureteroscope and up to the right renal pelvis. An 11/13-Singaporean ureteral access catheter was passed over the wire, up to the proximal ureter. The flexible ureteroscope was then passed through the ureteral access catheter sheath, up to the renal pelvis. Multiple small calculi were seen, but visualization was poor and the decision was made to terminate the procedure and place a ureteral stent. The Glidewire was passed through the ureteral access catheter sheath, which was removed along with the ureteroscope. Pullout ureteroscopy showed no evidence of ureteral trauma. After removing the ureteroscope, the Glidewire was backloaded into the cystoscope, which was passed into the bladder. A 24 cm, 6 Singaporean double-J ureteral stent was placed over the wire. Proper stent positioning was verified fluoroscopically and endoscopically. The bladder was emptied and the cystoscope removed. The patient tolerated the procedure well and was taken to the recovery room in stable condition. [facility] Report: Procedure Acuity: Urgent Stone Size and Location: Right ureter up to 5 to 6 mm Ureteral Dilation: No Ureteral Access Sheath Used: Yes Stone Sent for Analysis: No All Stones/Fragments Were Removed with a Basket: No Complications: No Preoperative Antibiotics Given: Yes Stent Placed: Yes If Stent Placed, Was String Left Attached: No If Stent Placed, When is it to be Removed: 2 weeks
[2023-12-06 19:48] LABS: Glucose,Whole Blood 196 mg/dL (70-110)
[2023-12-06] MEDS: ALBUTEROL NEBULIZED 2.5 MG/3 ML INHALATION ONE (19:54)
[2023-12-06] MEDS ORDERED: HYDROcodone/APAP 5-325MG 1 EACH TAB PO PRN (20:13)
[2023-12-06] MEDS: SODIUM CHLORIDE 0.9% 1,000 ML IV SCH (20:53)
[2023-12-07] MEDS: HYDROcodone/APAP 5-325MG 1 EACH TAB PO PRN (00:04)
[2023-12-07 07:03] LABS: Glucose,Whole Blood 147 mg/dL (70-110)
--- NOTE | 2023-12-07 07:40 | FL ---
EXAMINATION TYPE: FL urography retrograde DATE OF EXAM: 12/06/2023 COMPARISON: NONE HISTORY: Fluoroscopy time. Fluoroscopy was provided to the referring clinician.
[2023-12-07 07:59] VITALS: BP 126/67; PULSE 97; RESP 24; TEMP 98.6
[2023-12-07] MEDS: PANTOPRAZOLE 40 MG/10 ML VIAL IV SCH (08:35)
[2023-12-07] MEDS ORDERED: ACETAMINOPHEN TAB 325 MG TAB PO PRN (08:35)
[2023-12-07] MEDS ORDERED: IBUPROFEN 200 MG TAB PO PRN (08:35)
[2023-12-07] MEDS ORDERED: ALBUTEROL NEBULIZED 2.5 MG/3 ML INHALATION PRN (08:35)
--- NOTE | 2023-12-07 08:39 | P.DS ---
Providers Date of admission: 12/06/23 14:35 Expected date of discharge: 12/07/23 Attending physician: Rosalio Knox Primary care physician: Stated None - Discharge Diagnosis(es) (1) Ureterolithiasis Current Visit: Yes Status: Acute Hospital Course: The patient was admitted with severe right flank pain resulting from right ureteral calculi. He underwent ureteroscopic removal of the calculi and stent placement. The perioperative course was unremarkable. On the morning following surgery, the patient was very comfortable and was thus discharged home. It was explained to the patient that he will be contacted by Dr. Mandujano's office to arrange follow-up. Consideration will be given to removing his stent in the operating room to allow removal of any residual calculi. Procedures: Cystoscopy, right ureteroscopy with holmium laser lithotripsy and stone basketing, right ureteral stent insertion on December 06, 2023. Patient Condition at Discharge: Good Plan - Discharge Summary Discharge Rx Participant: Yes New Discharge Prescriptions: New Ketorolac [Toradol] 10 mg PO Q6HR PRN #10 tab PRN Reason: Pain No Action Albuterol Inhaler [Ventolin Inhaler] 2 puff INHALATION RT-Q6H PRN PRN Reason: Shortness Of Breath Acetaminophen Tab [Tylenol] 325 mg PO Q4-6H PRN PRN Reason: Pain Atorvastatin [Lipitor] 10 mg PO DAILY metFORMIN HCL 1,000 mg PO BID Tirzepatide [Mounjaro] 5 mg SQ TU lisinopriL [Zestril] 40 mg PO DAILY Amoxicillin 500 mg PO QID Budesonide/Formoterol Fumarate [Symbicort 80-4.5 Mcg Inhaler] 2 puff INHALATION RT-BID Pioglitazone [Actos] 15 mg PO DAILY Ibuprofen [Advil] 200 mg PO Q12H PRN PRN Reason: Pain Famotidine 20 mg PO BID Chlorhexidine Gluconate [Peridex] 15 ml PO BID Discharge Medication List Acetaminophen Tab [Tylenol] 325 mg PO Q4-6H PRN 08/06/15 [History] Albuterol Inhaler [Ventolin Inhaler] 2 puff INHALATION RT-Q6H PRN 08/06/15 [History] Atorvastatin [Lipitor] 10 mg PO DAILY 11/23/23 [History] Famotidine 20 mg PO BID 11/23/23 [History] Ibuprofen [Advil] 200 mg PO Q12H PRN 11/23/23 [History] Pioglitazone [Actos] 15 mg PO DAILY 11/23/23 [History] Tirzepatide [Mounjaro] 5 mg SQ TU 11/23/23 [History] metFORMIN HCL 1,000 mg PO BID 11/23/23 [History] Amoxicillin 500 mg PO QID 12/06/23 [History] Budesonide/Formoterol Fumarate [Symbicort 80-4.5 Mcg Inhaler] 2 puff INHALATION RT-BID 12/06/23 [History] Chlorhexidine Gluconate [Peridex] 15 ml PO BID 12/06/23 [History] lisinopriL [Zestril] 40 mg PO DAILY 12/06/23 [History] Ketorolac [Toradol] 10 mg PO Q6HR PRN #10 tab 12/07/23 [Rx] Follow up Appointment(s)/Referral(s): None,Stated [Primary Care Provider] - 1-2 days Activity/Diet/Wound Care/Special Instructions: Diet as tolerated. Activity as tolerated. Drink plenty of fluids. Patient will be contacted by Dr. Mandujano's office regarding follow-up. Discharge Disposition: HOME SELF-CARE
[2023-12-07 08:50] LABS: ALT 16 U/L (10-49); AST 13 U/L (14-35); Albumin 3.3 g/dL (3.8-4.9); Alkaline Phosphatase 69 U/L (41-126); BUN/Creat Ratio 22.55 Ratio (12.00-20.00); Blood Urea Nitrogen 24.8 mg/dL (9.0-27.0); Calcium 7.9 mg/dL (8.7-10.3); Carbon Dioxide 20.6 mmol/L (21.6-31.8); Chloride 105 mmol/L (96-109); Globulin 2.2 g/dL (1.6-3.3); Glucose 161 mg/dL (70-110); Potassium 4.3 mmol/L (3.5-5.5); Sodium 138 mmol/L (135-145); Total Bilirubin 1.1 mg/dL (0.3-1.2); Total Protein 5.5 g/dL (6.2-8.2)
[2023-12-07 08:58] LABS: HCT 35.3 % (39.6-50.0); HGB 11.6 g/dL (13.0-17.0); MCH 33.5 pg (27.0-32.0); MCHC 32.9 g/dL (32.0-37.0); Mean Platelet Volume 8.9 FL (9.5-12.2); NRBC Per 100 WBC 0 X 10*3/uL (0.00-0.01); Platelet Count 220 X 10*3/uL (140-440); RBC 3.46 X 10*6/uL (4.40-5.60); RDW 13.2 % (11.5-14.5); WBC 14.29 X 10*3/uL (4.50-10.00)
[2023-12-07 09:33] LABS: Basophils # (A) 0.03 X 10*3/uL (0.00-0.10); Basophils % (A) 0.2 %; Eosinophils # (A) 0.72 X 10*3/uL (0.04-0.35); Lymphocytes # (A) 1.73 X 10*3/uL (0.90-5.00); Lymphocytes % (A) 12.1 %; Monocytes # (A) 1.63 X 10*3/uL (0.20-1.00); Monocytes % (A) 11.4 %; Neutrophils # (A) 10.11 X 10*3/uL (1.80-7.70); Neutrophils % (A) 70.8 %; RBC Morphology Normal (Normal)
[2023-12-07] MEDS: AMOXICILLIN 500 MG CAP PO SCH (09:44)
[2023-12-07] MEDS: FAMOTIDINE 20 MG TAB PO SCH (09:44)
[2023-12-07] MEDS: ATORVASTATIN 10 MG TAB PO SCH (09:44)
[2023-12-07] MEDS: metFORMIN 500 MG TAB PO SCH (09:44)
[2023-12-07] MEDS: PIOGLITAZONE 15 MG TAB PO SCH (09:44)
[2023-12-07] MEDS: lisinopriL 20 MG TAB PO SCH (09:44)
[2023-12-07] MEDS ORDERED: SYMBICORT 80-4.5 MCG INHALER INHALATION SCH (20:00)
[2023-12-11] MEDS ORDERED: NON FORMULARY DRUG (Tirzepatide [Mounjaro] 5 MG/0.5 ML Pen.Injctr) SQ SCH (08:35)
== END 2023-12-07 10:30 | disposition home or self-care (01) | DRG 446 ==
LOC: EC 11:44 → 5NMEDONC 14:35
PROVIDERS: ADMIT Urology; ATTEND Urology
PROC: 0T768DZ Dilation of Right Ureter with Intraluminal Device, Via Natural or Artificial Opening Endoscopic (ICD-10-PCS; principal; 2023-12-06 07:30)
PROC: 0TC68ZZ Extirpation of Matter from Right Ureter, Via Natural or Artificial Opening Endoscopic (ICD-10-PCS; 2023-12-06 07:30)
DX: N20.2 Calculus of kidney with calculus of ureter (principal); E78.5 Hyperlipidemia, unspecified; M19.90 Unspecified osteoarthritis, unspecified site; I10 Essential (primary) hypertension; J45.909 Unspecified asthma, uncomplicated; Z79.84 Long term (current) use of oral hypoglycemic drugs; Z79.51 Long term (current) use of inhaled steroids; Z87.442 Personal history of urinary calculi; Z79.899 Other long term (current) drug therapy; E11.9 Type 2 diabetes mellitus without complications; K21.9 Gastro-esophageal reflux disease without esophagitis; J30.81 Allergic rhinitis due to animal (cat) (dog) hair and dander; F17.290 Nicotine dependence, other tobacco product, uncomplicated; Z90.49 Acquired absence of other specified parts of digestive tract; Z91.040 Latex allergy status
CPT/HCPCS: 74420; 80053; 85025; 99285